=== PATIENT | female | born 1945 | race Caucasian/White ===

== ENCOUNTER → 2018-01-04 | Outpatient (CLI) | payer OTHER ==
[~2018-01-04] MED LIST: AMLODIPINE BESYL5 MG PO; ASPIR 8181 M1 PO; CIPRO500 MG PO; CRESTOR40 MG PO; DIOVAN320 MG PO; ISOSORBIDE MONO30 MG PO; JANUMET 50/51 TABLET PO; OSTEO BI-FLEX1 EAC1 PO; PLAVIX75 MG PO; PROTONIX40 MG PO; TOPROL XL50 MG PO; VAGIFEM10 MCG VG; VITAMIN D1000 UNIT PO; ZETIA10 MG PO; ZOFRAN ODT4 MG PO
== END | disposition home or self-care (01) ==
DX: Z01.818 Encounter for other preprocedural examination (principal); R26.2 Difficulty in walking, not elsewhere classified; R29.3 Abnormal posture; R26.9 Unspecified abnormalities of gait and mobility; M25.552 Pain in left hip; M79.605 Pain in left leg; M25.652 Stiffness of left hip, not elsewhere classified; M62.81 Muscle weakness (generalized); Z74.1 Need for assistance with personal care
CPT/HCPCS: 97161 GP; 97165 GO; 97530 GP; 97535 GO; G8978 GP; G8979 GP; G8980 GP; G8987 GO; G8988 GO; G8989 GO

== ENCOUNTER 2018-01-22 09:47 | Inpatient (IN) | payer OTHER ==
[~2018-01-22] VITALS: Ht 172.7 cm; Wt 105.2 kg
[~2018-01-22 09:47] MED LIST changes: -OSTEO BI-FLEX1 EAC1 PO; +OSTEO BI-FLEX1 EAC2 PO; -VITAMIN D1000 UNIT PO; +VITAMIN D31000 UNIT PO
[2018-01-22 11:30] LABS: BASOPHIL (%) 0.1 % (0-1); EOSINOPHIL (%) 0 % (0-5); HEMATOCRIT 39.6 % (36.0-46.0); HEMOGLOBIN 13.1 G/DL (11.9-15.5); IMMATURE GRANULOCYTE (%) 0.3 % (0.0-0.7); LYMPHOCYTE (%) 6.6 % (15-42); MCH 27.1 PG (29.0-34.0); MCHC 33.1 G/DL (30.0-36.0); MCV 81.8 FL (83-99); MONOCYTE (%) 8.9 % (3-12); MONOCYTE COUNT 1.4 K/uL (0-0.8); NEUTROPHIL (%) 84.1 % (45-76); NEUTROPHIL COUNT 12.8 K/uL (1.8-6.4); PLATELET COUNT 230 K/uL (156-360); RBC DIS.WIDTH-CV 14.6 % (11.8-14.6); RBC DIS.WIDTH-SD 43.8 % (39-53); RED BLOOD COUNT 4.84 M/uL (3.80-5.20); WHITE BLOOD COUNT 15.2 K/uL (4.1-10.2)
[2018-01-22 11:31] LABS: APPEARANCE CLOUDY ((CLEAR)); BILIRUBIN NEGATIVE; BLOOD MODERATE; COLOR YELLOW ((YELLOW)); GLUCOSE (STRIP) NEGATIVE; KETONES NEGATIVE; LEUKOCYTES LARGE; NITRITE POSITIVE; PROTEIN (STRIP) 100; SPECIFIC GRAVITY 1.018 (1.000-1.030); UROBILINOGEN 0.2 MG/DL (0.2-1.0)
[2018-01-22 11:38] LABS: CHLORIDE 103 mEq/L (99-109); POTASSIUM 4.4 mEq/L (3.7-5.4); SODIUM 137 mEq/L (136-147)
[2018-01-22 11:40] LABS: GLUCOSE 160 mg/dL (70-99)
[2018-01-22 11:42] LABS: BACTERIA 3+ /HPF; EPITHELIAL CELLS 1+ /HPF; HYALINE CASTS 0-5 /LPF; MUCUS TRACE /LPF; UCUL ADDED? YES; WHITE BLOOD CELLS TNTC /HPF (0-5)
[2018-01-22 11:44] LABS: GFR ESTIMATE (CALCULATED) 58 mL/min/
[2018-01-22 11:45] LABS: UREA NITROGEN (BUN) 13 mg/dL (9-23)
[2018-01-22] MEDS ORDERED: LEVAQUIN750 MG PO (17:34)
[2018-01-22] MEDS ORDERED: CITRATE OF MAG296 ML PO (17:34)
[2018-01-22 20:52] VITALS: BP 138/71
[2018-01-23 05:16] VITALS: BP 143/76
[2018-01-23 05:46] LABS: HEMATOCRIT 38.2 % (36.0-46.0); HEMOGLOBIN 12.2 G/DL (11.9-15.5); MCH 26.1 PG (29.0-34.0); MCHC 31.9 G/DL (30.0-36.0); MCV 81.6 FL (83-99); PLATELET COUNT 217 K/uL (156-360); RBC DIS.WIDTH-CV 14.9 % (11.8-14.6); RBC DIS.WIDTH-SD 44.8 % (39-53); RED BLOOD COUNT 4.68 M/uL (3.80-5.20)
[2018-01-23 06:10] LABS: ALBUMIN 3.3 G/DL (3.2-4.8); ALKALINE PHOSPHATASE 71 IU/L (3-129); ALT (GPT) 23 IU/L (3-49); AST (GOT) 21 IU/L (2-34); CHLORIDE 102 MEQ/L (99-109); CREATININE 1.1 MG/DL (0.6-1.3); GFR ESTIMATE (CALCULATED) 52 mL/min/; GLUCOSE 181 mg/dL (70-99); SODIUM 136 MEQ/L (136-147); TOTAL BILIRUBIN 0.8 MG/DL (0.0-1.0); TOTAL PROTEIN 6.6 G/DL (6.4-8.3); UREA NITROGEN (BUN) 12 mg/dL (9-23)
[2018-01-23 09:00] VITALS: BP 138/68
[2018-01-23 12:00] VITALS: BP 142/70
[2018-01-23 18:52] VITALS: BP 165/82
[2018-01-24 00:10] VITALS: BP 136/73
[2018-01-24 04:20] VITALS: BP 143/72
[2018-01-24 07:17] LABS: HEMATOCRIT 36.3 % (36.0-46.0); HEMOGLOBIN 11.6 G/DL (11.9-15.5); MCH 26.4 PG (29.0-34.0); MCV 82.5 FL (83-99); PLATELET COUNT 215 K/uL (156-360); RBC DIS.WIDTH-CV 15.2 % (11.8-14.6); RBC DIS.WIDTH-SD 45.8 % (39-53); WHITE BLOOD COUNT 6.3 K/uL (4.1-10.2)
[2018-01-24 07:32] LABS: CHLORIDE 103 MEQ/L (99-109); CREATININE 0.8 MG/DL (0.6-1.3); GFR ESTIMATE (CALCULATED) > 59 mL/min/; GLUCOSE 164 mg/dL (70-99); POTASSIUM 3.8 MEQ/L (3.7-5.4); SODIUM 139 MEQ/L (136-147); UREA NITROGEN (BUN) 7 mg/dL (9-23)
[2018-01-24 08:43] VITALS: BP 143/73
[2018-01-24 10:27] LABS: HEMOGLOBIN A1c (GLYCOHEMOGLOB) 6.7 % (Below 5.7)
[2018-01-24 11:25] VITALS: BP 138/67
[2018-01-24] MEDS ORDERED: CEFTRIAXONE1 G1 IV (11:35)
== END 2018-01-24 15:10 | disposition home or self-care (01) | DRG 690 ==
LOC: EME 09:47 → EDOF 19:25 → ENRESERV 19:35 → 4SOUTH 20:25
PROVIDERS: Emergency Medicine; Internal Medicine; Nurse Practitioner Adult Health
DX: N12 Tubulo-interstitial nephritis, not specified as acute or chronic (principal); N13.0 Hydronephrosis with ureteropelvic junction obstruction; E11.9 Type 2 diabetes mellitus without complications; K59.00 Constipation, unspecified; M16.12 Unilateral primary osteoarthritis, left hip; N28.1 Cyst of kidney, acquired; E78.5 Hyperlipidemia, unspecified; I25.10 Atherosclerotic heart disease of native coronary artery without angina pectoris; I10 Essential (primary) hypertension; Z79.82 Long term (current) use of aspirin; Z79.899 Other long term (current) drug therapy; Z95.5 Presence of coronary angioplasty implant and graft; Z90.710 Acquired absence of both cervix and uterus; Z79.02 Long term (current) use of antithrombotics/antiplatelets; Z87.440 Personal history of urinary (tract) infections; Z87.442 Personal history of urinary calculi; R00.0 Tachycardia, unspecified; Z86.73 Personal history of transient ischemic attack (TIA), and cerebral infarction without residual deficits
CPT/HCPCS: 74022; 74177; 80048; 80053; 81003; 82948; 83036; 83605; 85025; 85027; 87040; 87077; 87086; 87186; 93005; 99281; 99285; G0378; J0696; J1644; J1815; J2405; J2765; J7030; S0028

== ENCOUNTER → 2018-02-17 | Outpatient (CLI) | payer OTHER ==
[~2018-02-17] MED LIST changes: +CEFTRIAXONE1 G1 IV; +CITRATE OF MAG296 ML PO; +LEVAQUIN750 MG PO; +LOSARTAN POTAS100 MG PO
== END | disposition home or self-care (01) ==
LOC: NUC 10:51
DX: N13.30 Unspecified hydronephrosis (principal); N28.89 Other specified disorders of kidney and ureter
CPT/HCPCS: 78709; A9562; J1940